=== PATIENT | female | born 1940 | race Caucasian/White ===

== ENCOUNTER 2016-11-20 17:15 | Inpatient (IN) | payer MEDICARE, MEDICAID ==
[~2016-11-20] VITALS: Ht 162.6 cm; Wt 74.4 kg
[~2016-11-20 17:15] MED LIST: ADVAIR DISKUS 21 DSK IH; AMOXIL PO; CENTRUM SILVER1 CTB PO; CLARITHROMYCIN PO; CRESTOR10 MG PO; DIOVAN80 M1 PO; DITROPAN5 MG PO; FOSAMAX70 MG PO; LIPITOR10 MG PO; MOTRIN800 MG PO; OMEPRAZOLE20 M3 PO; PRAMIPEXOLE D0.25 MG PO; REQUIP2 MG PO; RITE AID CALCI600 MG PO; SYNTHROID0.05 MG PO; [UNRECOGNIZED DRUG - REMARK]; lopressor
[2016-11-20 17:59] VITALS: BP 149/73
[2016-11-20] MEDS ORDERED: LIORESAL10 MG PO (18:03)
--- NOTE | 2016-11-20 19:30 | NUR ---
Patient ambulated to bed 3 with family. RN evaluating patient at bedside.
--- NOTE | 2016-11-20 19:57 | NUR ---
PATIENT PRESENTS TO ED WITH LT LEG PAIN AND SUBSTERNAL CHEST PRESSURE WITH HEART MURMURS . PT STATES THE PAIN IS RADIATING TO THE LT BUTTOCKS AND MID-BACK . DENIES N/V/D; SKIN IS PINK/WARM/DRY; AAOX4 WITH EVEN AND STEADY GAIT; LUNGS CLEAR BL; HR EVEN AND REGULAR; PT DENIES ANY FEVER, CP, SOB, OR COUGH AT THIS TIME; PATIENT STATES PAIN OF 9/10 AT THIS TIME; VSS; PATIENT POSITIONED FOR COMFORT; HOB ELEVATED; BEDRAILS UP X2; BED DOWN. ER MD MADE AWARE OF PT STATUS. FAMILY AT BEDSIDE AT THIS TIME
--- NOTE | 2016-11-20 20:01 | NUR ---
Dr. ross evaluating patient at bedside.
[2016-11-20] MEDS ORDERED: fentaNYL 0.05 MG/ML VIAL IVP ONE (20:10)
[2016-11-20] MEDS ORDERED: ASPIRIN 81 MG TAB.CHEW PO ONE (20:10)
[2016-11-20] MEDS ORDERED: METOPROLOL 50 MG TAB PO ONE (20:10)
[2016-11-20] MEDS ORDERED: NACL 0.9% 1,000 ML IV ONE (20:10)
--- NOTE | 2016-11-20 22:19 | NUR ---
Patient will be admitted to care of DR. SHAH. Admited to TELE. Will go to room 106B. Belongings list completed. Report to GAMALIEL DAVE.
--- NOTE | 2016-11-20 22:19 | NUR ---
REPORT RECEIVED FROM JATINDER Amin RN.
[2016-11-20] MEDS ORDERED: HYDROmorphone 1 MG/ML AMP IVP ONE (22:45)
--- NOTE | 2016-11-20 22:55 | NUR ---
PT ARRIVED ON UNIT IN STABLE CONDITION. NO SOB, NO SIGNS OF DISTRESS. VS STABLE ON ROOM AIR. PT IS AOX4, AMBULATES WITH STANDBY ASSIST, SPEAKS ZAMBIAN. IV TO RT AC 22G PATENT, ASYMPTOMATIC, INTACT, SALINE LOCKED. PT C/O 7/10 EPIGASTRIC PAIN RADIATING TO HER BACK. LT LEG EDEMA 1+ PITTING NOTED. WILL MEDICATE PER MD ORDER. SKIN IS INTACT. PT C/O URGE INCONTINENCE, PROVIDED PT WITH PADS. OBTAINED FULL HX FROM PATIENT WHO IS AN ACCURATE HISTORIAN. ORIENTED PT TO ROOM AND UNIT. PLACED PT ON FALL PRECAUTIONS. EDUCATED PT ON FALL RISK. PLAN OF CARE DISCUSSED WITH PT. SAFETY MEASURES IN PLACE. CALL LIGHT WITHIN REACH. WILL CONTINUE TO MONITOR.
[2016-11-20] MEDS ORDERED: ONDANSETRON 4 MG/2 ML VIAL IVP PRN (23:00)
[2016-11-20] MEDS ORDERED: LORazepam 1 MG TAB PO PRN (23:00)
[2016-11-20] MEDS ORDERED: ACETAMINOPHEN 325 MG TAB PO PRN (23:00)
[2016-11-20] MEDS ORDERED: ZOLPIDEM 5 MG TAB PO PRN (23:00)
[2016-11-20] MEDS ORDERED: ALUMINUM HYD/MAG/SIMETHICONE 30 ML UDC PO PRN (23:00)
[2016-11-20] MEDS ORDERED: NITROGLYCERIN 0.4 MG TAB SL PRN (23:00)
[2016-11-20 23:38] VITALS: BP 145/70
--- NOTE | 2016-11-20 23:55 | NUR ---
MEDICATED PT FOR PAIN PER ER MD ORDER. PT TOLERATED WELL. VS STABLE ON ROOM AIR. NO SOB, NO SIGNS OF DISTRESS. IV SITE ASYMPTOMATIC, INTACT, SALINE LOCKED. PLAN OF CARE DISCUSSED WITH PT. SAFETY MEASURES IN PLACE. CALL LIGHT WITHIN REACH. WILL CONTINUE TO MONITOR.
--- NOTE | 2016-11-21 01:00 | NUR ---
PT C/O NAUSEA, VS STABLE ON ROOM AIR. NO SOB, NO SIGNS OF DISTRESS. PT DENIES PAIN T THIS TIME. MEDICATED PT PER MD ORDER. IV SITE ASYMPTOMATIC, INTACT, PATENT, SALINE LOCKED. PLAN OF CARE DISCUSSED WITH PT. SAFETY MEASURES IN PLACE. CALL LIGHT WITHIN REACH. WILL CONTINUE TO MONITOR.
[2016-11-21 04:07] VITALS: BP 147/76
--- NOTE | 2016-11-21 04:21 | NUR ---
VS STABLE ON ROOM AIR. NO SOB, NO SIGNS OF DISTRESS. IV SITE ASYMPTOMATIC, INTACT, SALINE LOCKED. PT DENIES PAIN AT THIS TIME. PLAN OF CARE DISCUSSED WITH PT. SAFETY MEASURES IN PLACE. CALL LIGHT WITHIN REACH. WILL CONTINUE TO MONITOR.
--- NOTE | 2016-11-21 06:53 | NUR ---
PT C/O CHEST PRESSURE, MEDICATED PT WITH NITRO PER MD ORDER. PT TOLERATED WELL. NO SOB, NO SIGNS OF DISTRESS. IV SITE ASYMPTOMATIC, INTACT, SALINE LOCKED. PLAN OF CARE DISCUSSED WITH PT. SAFETY MEASURES IN PLACE. CALL LIGHT WITHIN REACH. WILL CONTINUE TO MONITOR.
--- NOTE | 2016-11-21 06:58 | NUR ---
PT STATED NO RELIEF OF CHEST PAIN, WILL ENDORSE TO AM NURSE JOSEPHINE.
--- NOTE | 2016-11-21 07:20 | NUR ---
ENDORSED PT IN STABLE CONDITION TO JOLIE BURTON. ALL NEEDS HAVE BEEN MET AT THIS TIME.
--- NOTE | 2016-11-21 07:20 | NUR ---
RECEIVED REPORT FROM NIGHT NURSE. PT IS AAOX4. ON ROOM AIR , IF TO RIGHT AC 22G SALINE LOCK PATENT AND INTACT. SKIN INTACT. PT STATES SOME CHEST PAIN RELIEF. ASSISTED PT TO RESTROOM AND BACK TO BED, PT CURRENTLY EATING BREAKFAST AT BEDSIDE. INITIAL ASSESSMENT COMPLETED, REVIEWED PLAN OF CARE WITH PT PT VERBALIZED UNDERSTANDING. ALL SAFETY/ FALL PRECAUTIONS MET. ALL NEEDS MET. CALL LIGHT WITHIN REACH. WILL CONTINUE TO MONITOR.
--- NOTE | 2016-11-21 07:40 | NUR ---
PATIENT HAS BEEN SCREENED AND CATEGORIZED MODERATE NUTRITION RISK. PATIENT WILL BE SEEN WITHIN 3-5 DAYS OF ADMISSION. 11/23/16-11/25/[address]
[2016-11-21 08:00] VITALS: BP 131/65
[2016-11-21] MEDS: IBUPROFEN 800 MG TAB PO SCH ×2 (09:12→20:20)
[2016-11-21] MEDS: BACLOFEN 10 MG TAB PO SCH ×2 (09:13→20:19)
[2016-11-21] MEDS: ATORVASTATIN 20 MG TAB PO SCH (09:13)
[2016-11-21] MEDS: VALSARTAN 80 MG TAB PO SCH (09:13)
[2016-11-21] MEDS: DOCUSATE SODIUM 100 MG GELCAP PO SCH (09:13)
[2016-11-21] MEDS: PRAMIPEXOLE 0.5 MG TAB PO SCH (09:14)
[2016-11-21] MEDS: rOPINIRole 1 MG TAB PO SCH (09:14)
[2016-11-21] MEDS ORDERED: ARIMIDEX1 MG PO (09:20)
--- NOTE | 2016-11-21 09:22 | NUR ---
DUE MEDICATIONS GIVEN, PT TOLERATED WELL. PT STATES RELIEF CHEST PAIN. PT CURRENTLY VISITING WITH SISTER. ALL NEEDS MET. CALL LIGHT WITHIN REACH. WILL CONTINUE TO MONITOR.
--- NOTE | 2016-11-21 11:55 | NUR ---
CHECKED IN ON PT. PT CURRENTLY SLEEPING. NO S/S OF DISTRESS OR DISCOMFORT NOTED, SISTER AT BEDSIDE. CALL LIGHT WITHIN REACH. WILL CONTINUE TO MONITOR.
[2016-11-21 12:00] VITALS: BP 128/61
--- NOTE | 2016-11-21 12:21 | NUR ---
CM NOTE INITIAL REVIEW FAXED TO [employer] / FAX# [phone], C: [phone] OPT. 1
[2016-11-21] MEDS ORDERED: ALENDRONATE SOD70 MG PO (12:36)
--- NOTE | 2016-11-21 13:30 | NUR ---
STRAIGHT CATHETERIZATION DONE, CLEAN URINE OBTAINED. PT TOLERATED WELL. ALL NEEDS MET. CALL LIGHT WITHIN REACH. WILL CONTINUE TO MONITOR.
[2016-11-21 16:00] VITALS: BP 133/64
--- NOTE | 2016-11-21 16:21 | NUR ---
PT CURRENTLY SLEEPING. SISTERS AT BEDSIDE. NO S/S OF DISTRESS OR DISCOMFORT NOTICED. CALL LIGHT WITHIN REACH. WILL CONTINUE TO MONITOR.
[2016-11-21] MEDS ORDERED: REGADENOSON 0.4 MG/5 ML SYR IV SCH (17:45)
--- NOTE | 2016-11-21 19:29 | NUR ---
ENDORSED PLAN OF CARE TO NIGHT NURSE. PT IN STABLE CONDITION.
--- NOTE | 2016-11-21 19:30 | NUR ---
RECEIVED REPORT FROM JONATAN DAVE AT BEDSIDE. PT IS ALERT AWAKE ORIENTED X4. INITIAL ASSESSMENT DONE. NO S/S OF RESPIRATORY DISTRESS OR SOB NOTED. C/O GENERALIZED PAIN SCALING 5/10. WILL GIVE SCHEDULED MEDICATION FOR PAIN ORDERED. PLAN OF CARE REVIEWED TO PT AND FAMILY AT BEDSIDE AND VERBALIZED UNDERSTANDING. CALL LIGHT WITHIN REACH. WILL CONTINUE TO MONITOR.
[2016-11-21 20:00] VITALS: BP 127/61
[2016-11-21] MEDS ORDERED: NON-FORMULARY ITEM (Rosuvastatin Calcium* (Crestor*) 10 MG) PO SCH ×2 (21:00)
--- NOTE | 2016-11-21 21:10 | NUR ---
RECEIVED REPORT FROM SHASHI, PATIENT IS SLEEPING, EASILY AROUSABLE, ON ROOM AIR, NO SIGN OF DISTRESS OR SOB AT THIS TIME, PATIENT DENIES PAIN AT THIS TIME. SAFETY MEASURES CHECKED, CALL LIGHT WITHIN REACH. WILL CONTINUE TO MONITOR.
--- NOTE | 2016-11-21 21:10 | NUR ---
PT HAS NO S/S OF ANY DISCOMFORT. ENDORSED TO FRIDA DAVE AT BEDSIDE FOR CONTINUITY OF CARE.
[2016-11-22] VITALS: BP 127/66
--- NOTE | 2016-11-22 00:30 | NUR ---
VITAL SIGNS STABLE, NO SOB OR SIGN OF DISTRESS, PATIENT RESTING IN BED, DENIES PAIN AT THIS TIME, CALL LIGHT WITHIN REACH. WILL CONTINUE TO MONITOR.
--- NOTE | 2016-11-22 02:20 | NUR ---
PATIENT SLEEPING, NO SOB OR SIGN OF DISTRESS, CALL LIGHT WITHIN REACH. WILL CONTINUE TO MONITOR.
[2016-11-22 04:00] VITALS: BP 105/52
--- NOTE | 2016-11-22 04:22 | NUR ---
VITAL SIGNS STABLE, PATIENT SLEEPING, NO SOB OR SIGN OF DISTRESS, CALL LIGHT WITHIN REACH. WILL CONTINUE TO MONITOR.
--- NOTE | 2016-11-22 07:19 | NUR ---
ENDORSED PATIENT FOR CONTINUITY OF CARE TO DAY RN AT BEDSIDE, PATIENT IN STABLE CONDITION
--- NOTE | 2016-11-22 07:20 | NUR ---
RECEIVED REPORT FROM JOLIE GALICIA. PT IS SLEEPING BUT EASILY AWAKEN, AAO X4, SKIN INTACT, IV ON RIGHT AC FLUSHED PATENT AND INTACT ON SL. INITIAL ASSESSMENT DONE, NO S/S OF RESPIRATORY DISTRESS OR DISCOMFORT NOTED, DISCUSSED PLAN OF CARE. PT VERBALIZED UNDERSTANDING. SAFETY/FALL PRECAUTION ENFORCED, CALL LIGHT WITHIN REACH, WILL CONTINUE TO MONITOR.
[2016-11-22 07:38] VITALS: BP 136/67
--- NOTE | 2016-11-22 08:52 | NUR ---
DUE MEDS HELD, PT WILL BE HAVING LEXISCAN STRESS TEST THIS MORNING, TECH AT BEDSIDE PICKING UP PT FOR LEXISCAN PROCEDURE.
[2016-11-22] MEDS: BACLOFEN 10 MG TAB PO SCH (09:52)
[2016-11-22] MEDS: ATORVASTATIN 20 MG TAB PO SCH (09:53)
[2016-11-22] MEDS: DOCUSATE SODIUM 100 MG GELCAP PO SCH (09:53)
[2016-11-22] MEDS: IBUPROFEN 800 MG TAB PO SCH (09:53)
[2016-11-22] MEDS: VALSARTAN 80 MG TAB PO SCH (09:53)
[2016-11-22] MEDS: PRAMIPEXOLE 0.5 MG TAB PO SCH (09:54)
[2016-11-22] MEDS: rOPINIRole 1 MG TAB PO SCH (09:54)
--- NOTE | 2016-11-22 09:59 | NUR ---
DUE MEDS GIVEN, PT TOLERATED WELL, PT REFUSED TO DO LEXISCAN STRESS TEST. ALL NEEDS MET AT THIS TIME, CALL LIGHT WITHIN REACH, WILL CONTINUE TO MONITOR.
[2016-11-22] MEDS ORDERED: KETOROLAC 30 MG/ML VIAL IVP SCH (10:00)
[2016-11-22] MEDS ORDERED: POTASSIUM CHLORIDE 10 MEQ TABER PO SCH (10:30)
--- NOTE | 2016-11-22 10:52 | NUR ---
CM NOTE CONCURRENT REVIEW FAXED TO [facility] [employer] / FAX# [phone], C: [phone] OPT. 1
--- NOTE | 2016-11-22 11:13 | NUR ---
PATIENT REFUSED LEXISCAN STRESS TEST. DR. SHAH NOTIFIED.
--- NOTE | 2016-11-22 11:15 | NUR ---
PT IS SLEEPING AT THIS TIME, NO S/S OF RESPIRATORY DISTRESS OR DISCOMFORT NOTED, FAMILY MEMBER AT BEDSIDE, CALL LIGHT WITHIN REACH, WILL CONTINUE TO MONITOR.
[2016-11-22 12:00] VITALS: BP 135/69
[2016-11-22] MEDS ORDERED: BACTROBAN 2%20 MG/GM TP (12:18)
[2016-11-22] MEDS ORDERED: NITROSTAT0.4 MG SL (12:18)
--- NOTE | 2016-11-22 12:34 | NUR ---
PT IS BEING DISCHARGE BY RUBEN PAYNE. PER DR. RUBEN SHAH CALL DR. Nat SHAH, CONSULT, IF PT IS CLEAR TO BE DISCHARGE. CALLED AND SPOKE TO DR. Nat SHAH, PT IS CLEARED TO BE DISCHARGE, WILL DISCHARGE PT.
--- NOTE | 2016-11-22 13:11 | NUR ---
PT IS RESTING ON BED, ALL NEEDS MET AT THIS TIME, NO S/S OF RESPIRATORY DISTRESS OR DISCOMFORT NOTED, CALL LIGHT WITHIN REACH, WILL CONTINUE TO MONITOR.
--- NOTE | 2016-11-22 13:30 | NUR ---
DISCHARGE INSTRUCTIONS AND PRESCRIPTIONS GIVEN, PT VERBALIZED UNDERSTANDING, REMOVED TELE, ID WRISTBAND AND IV, CATHETER TIP INTACT. ALL QUESTIONS ANSWERED. PT LEFT THE UNIT VIA WHEELCHAIR ACCOMPANIED BY SISTER. PT STABLE UPON DISCHARGE.
[2016-11-23] MEDS ORDERED: MUPIROCIN 2% OINT 22 GM TUBE TP SCH (09:00)
[2016-11-23] MEDS ORDERED: CHLORHEXADINE GLUC 2% CLOTH TP SCH (09:00)
[2016-11-24] MEDS ORDERED: ALENDRONATE SODIUM 70 MG TAB PO SCH (06:00)
== END 2016-11-22 13:30 | disposition home or self-care (01) | DRG 206 ==
LOC: MED 17:20 → MTU 21:47
PROVIDERS: ADMIT Preventive Medicine Preventive Medicine/Occupational Environmental Medicine; ATTEND Preventive Medicine Preventive Medicine/Occupational Environmental Medicine
DX: M94.0 Chondrocostal junction syndrome [Tietze] (principal); M47.28 Other spondylosis with radiculopathy, sacral and sacrococcygeal region; I10 Essential (primary) hypertension; M81.0 Age-related osteoporosis without current pathological fracture; E78.00 Pure hypercholesterolemia, unspecified; D72.829 Elevated white blood cell count, unspecified; M48.07 Spinal stenosis, lumbosacral region; G62.9 Polyneuropathy, unspecified; E78.5 Hyperlipidemia, unspecified; Z90.10 Acquired absence of unspecified breast and nipple; Z88.6 Allergy status to analgesic agent; Z88.8 Allergy status to other drugs, medicaments and biological substances; Z88.5 Allergy status to narcotic agent; Z79.899 Other long term (current) drug therapy; Z87.891 Personal history of nicotine dependence; Z87.81 Personal history of (healed) traumatic fracture; Z85.3 Personal history of malignant neoplasm of breast